=== PATIENT | male | born 1950 | race Caucasian/White ===

== ENCOUNTER → 2019-07-03 09:48 | Outpatient (BNVA) | payer MEDICARE, SELFPAY | PROVIDERS: Family Provider Family Medicine; PCP Nurse Practitioner Family; Referring Provider Nurse Practitioner Family; Visit Provider Specialist | DX: G40.409 Other generalized epilepsy and epileptic syndromes, not intractable, without status epilepticus (principal) | CPT/HCPCS: 95816 ==

== ENCOUNTER → 2019-12-19 08:43 | Outpatient (BNVA) | payer MEDICARE, SELFPAY | PROVIDERS: Family Provider Family Medicine; PCP Nurse Practitioner Family; Visit Provider Urology | DX: R35.1 Nocturia (principal); N40.1 Benign prostatic hyperplasia with lower urinary tract symptoms | CPT/HCPCS: 81001 ==

== ENCOUNTER → 2020-01-21 08:06 | Outpatient (BNVA) | payer MEDICARE, OTHER, SELFPAY | PROVIDERS: Family Provider Family Medicine; PCP Nurse Practitioner Family; Referring Provider Nurse Practitioner Family; Visit Provider Specialist | DX: G40.109 Localization-related (focal) (partial) symptomatic epilepsy and epileptic syndromes with simple partial seizures, not intractable, without status epilepticus (principal); Z91.14 Patient's other noncompliance with medication regimen | CPT/HCPCS: 99204 ==

== ENCOUNTER 2021-05-18 15:39 | Emergency (ER) | payer MEDICARE, SELFPAY ==
[2021-05-18 15:40] VITALS: BP 165/115; PULSE 90; RESP 18; O2SAT 97; BMI 24.3
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
--- NOTE | 2021-05-18 16:14 | CTR_ITS ---
PROCEDURE INFORMATION: Exam: CT Lumbar Spine Without Contrast Exam date and time: 05/18/2021 4:14 PM Age: 70 years old Clinical indication: Low back pain; Additional info: Midline cervical pain TECHNIQUE: Imaging protocol: Computed tomography images of the lumbar spine without contrast. Radiation optimization: All CT scans at this facility use at least one of these dose optimization techniques: automated exposure control; mA and/or kV adjustment per patient size (includes targeted exams where dose is matched to clinical indication); or iterative reconstruction. COMPARISON: CT thoracic spin wo con* [id number] 05/18/2021 4:44 PM RADIATION DOSE METRICS: Total DLP (mGy-cm): 1951.3 FINDINGS: Vertebrae: No acute fracture. Normal alignment. Discs/Spinal canal/Neural foramina: No significant disc protrusion. No severe spinal canal stenosis. No significant neural foraminal narrowing. Soft tissues: Unremarkable. CT/CT lumbar spine wo con* [id number] IMPRESSION: No acute findings.
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
--- NOTE | 2021-05-18 16:16 | XRR_ITS ---
PROCEDURE INFORMATION: Exam: XR Left Shoulder Exam date and time: 05/18/2021 4:16 PM Age: 70 years old Clinical indication: Pain; Shoulder; Left; Additional info: Shoulderp ain TECHNIQUE: Imaging protocol: XR Left shoulder. Views: 2 or more views. COMPARISON: CR Chest 1 [place] [id number] 01/15/2017 3:00 PM FINDINGS: Bones/joints: Osseous structures are intact. Negative for fracture. Joint spaces are preserved. Soft tissues: Normal. XR/XR shoulder LT min 2V* [id number] IMPRESSION: No acute findings.
[2021-05-18 16:27] VITALS: RESP 18
[2021-05-18] MEDS: oxyCODONE-APAP 5-325 mg Tablet 1 TAB PO (16:27)
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
[2021-05-18 17:28] VITALS: RESP 18
[2021-05-18] MEDS: morphine 4 mg/mL SDV 1 mL 2 MG IVP (17:28)
[2021-05-18] MEDS: lidocaine 5% Patch 1 PATCH TOPICAL (17:28)
[2021-05-18 17:33] VITALS: BP 161/89; PULSE 82; RESP 16; O2SAT 97
[2021-05-18 18:10] VITALS: BP 148/86; PULSE 75; RESP 18; TEMP 36.5; O2SAT 98
--- NOTE | 2021-05-19 09:04 | DCPLANNER ---
brokerage manager had message to schedule a follow up appointment for patient with ortho. brokerage manager called the ortho clinic, spoke with Katherine, gave clinic patients information. brokerage manager was told that patients information would be printed and reviewed. Clinic will call patient with appointment information.
--- NOTE | 2021-05-21 06:42 | DCPLANNER ---
Patient has a follow up appointment scheduled for Tuesday, May 25, 2021 at 9:[address] Morgan. Clinic will call patient with appointment information.
--- NOTE | 2021-05-24 14:07 | DCPLANNER ---
Addendum entered by Tara Kramer 06/10/21 15:04: Patient had a follow up appointment scheduled for 05.25.[address] Morgan - patient did attend appointment. Original Note: senior sourcing manager had message to speak with patient about scheduling a follow up appointment with primary care. Patient stated that he did not want an appointment scheduled at this time.
== END 2021-05-18 18:12 | disposition home or self-care (01) ==
LOC: ER 16:51
PROVIDERS: Emergency Provider Emergency Medicine; Family Provider Family Medicine; PCP Nurse Practitioner Family
DX: S06.0X9A Concussion with loss of consciousness of unspecified duration, initial encounter (principal); M54.9 Dorsalgia, unspecified; M25.512 Pain in left shoulder; V89.2XXA Person injured in unspecified motor-vehicle accident, traffic, initial encounter
CPT/HCPCS: 70450; 72125; 72128; 72131; 73030; 96374; 99283; J2270